=== PATIENT | male | born 1955 | race Caucasian/White ===

== ENCOUNTER 2024-05-12 10:34 | Outpatient (AMB) | payer MEDICARE, SELFPAY ==
--- NOTE | 2024-05-12 10:38 | A.OFFVIS_ITS ---
Vital Signs 05/12/24 10:42 Height 6 ft 1 in Weight 225 lb BMI 29.7 BP 128/60 Blood Pressure Location Lt brachial Position Sitting Pulse 70 Pulse Source Pulse Oximeter Pulse Oximetry (%) 97 Oxygen Delivery Method Room Air Intake Visit Reasons: Sleep apnea Kiln Pusher Required: No Allergies No Known Allergies Allergy (Verified 05/12/24 10:38) HPI Comments Details: The patient is here for pulmonary evaluation. The patient is a 69-year-old gentleman with known history of aortic stenosis CAD status post CABG and also significant sleep apnea. Back around 20 years ago the patient did have significant snoring in his at that time did recommend that he get that evaluated with his significant snoring that was affecting her quality of life. He at that time had significant daytime drowsiness with an elevated [place] score of 11/24. The patient did have a sleep study back in 2006 which d emonstrated sleep apnea severe and subsequently had a titration study demonstrating the CPAP 7 cm worse effective for him. Therefore, he did start CPAP at that time. He has machine for long time. CPAP therapy has been affecting beneficial. Now his machine is no longer working effectively. The pressures are not working as robust as they were before. He does not feel as rested. In addition to that now the machine saying that the the angina is about to malfunction. He needs to get a CPAP through his current [employer] company, [employer]. Will go ahead and request a replacement machine for him, AirSense 11. Once he is situated with the machine he will come back and will further adjust the pressures accordingly. From a respiratory status the patient is doing well. He is currently being evaluated for the severe aortic stenosis. His contemplating surgery at this time. [facility] Medical History (Updated 05/12/24 @ 20:33 by Clint Guo MD) CAD (coronary artery disease) Aortic stenosis KATJA (obstructive sleep apnea) Social History (Updated 05/12/24 @ 10:42 by BASIM Sung) Patient Tobacco Use Status: Never used Tobacco Review of Systems Const Denies fatigue and Denies snoring Eyes Reports no additional complaints ENT Reports nasal congestion Card Reports as per HPI and Denies dyspnea Resp Denies dyspnea, Denies snoring and Denies wheezing GI Reports no additional complaints Musc Reports no additional complaints Skin/Breast Reports system reviewed and no additional complaints, except as documented Neuro Reports no additional complaints Endo Denies fatigue Alessio/Lymph Denies lymphadenopathy Aller/Immun Denies wheezing Physical Exam Vital Signs: Last Vital Signs Pulse 70 05/12/24 10:42 BP 128/60 05/12/24 10:42 Pulse Ox 97 05/12/24 10:42 Oxygen Delivery Method Room Air 05/12/24 10:42 BMI result Body Mass Index 29.7 Const General: comfortable HEENT Head: Yes atraumatic Neck Neck: Yes supple Chest Chest palpation & inspection: normal inspection of the chest Resp Effort & Inspection: normal respiratory effort Cardio Heart sounds: S1 normal heart sound present and S2 normal heart sound present GI Palpation (GI): Soft to palpation Skin General skin exam: no rashes or lesions noted Extrem General: Yes no clubbing, cyanosis or edema Assessment & Plan Assessment & Plan (1) KATJA (obstructive sleep apnea): Code(s): G47.33 - Obstructive sleep apnea (adult) (pediatric) Category: Medical (2) Aortic stenosis: Code(s): I35.0 - Nonrheumatic aortic (valve) stenosis Category: Medical Qualifiers: Cardiac valve disease etiology: etiology unspecified Qualified Code(s): I35.0 - Nonrheumatic aortic (valve) stenosis (3) CAD (coronary artery disease): Code(s): I25.10 - Atherosclerotic heart disease of [place] coronary artery without angina pectoris Category: Medical Qualifiers: Coronary Disease-Associated Artery/Lesion type: bypass graft, autologous artery Associated angina: unspecified whether angina present Qualified Code(s): I25.810 - Atherosclerosis of coronary artery bypass graft(s) without angina pectoris Plan Needs a replacement APAP, his current APAP is older than 5 years old and no longer working effectively. We will request a replacement APAP from his [employer]unice continue evaluation for Aortic valve replacment. TVAR likely a better approach in view of his previous open hear surgery. F/U 3-4 months wit his new APAP Coding Level of Care Code New Pt Level 4 (51250) Diagnoses KATJA (obstructive sleep apnea) G47.33 Aortic valve stenosis, etiology of cardiac valve disease unspecified I35.0 Cardiac valve disease etiology: etiology unspecified Coronary artery disease involving autologous artery coronary bypass graft, unspecified whether angina present I25.810 Coronary Disease-Associated Artery/Lesion type: bypass graft, autologous artery Associated angina: unspecified whether angina present Time Spent (min) 30
[2024-05-12 10:42] VITALS: BP 128/60; PULSE 70; O2SAT 97; BMI 29.7
== END 2024-05-12 11:05 | disposition home or self-care (01) ==
PROVIDERS: PCP Internal Medicine; Visit Provider Hospitalist
DX: G47.33 Obstructive sleep apnea (adult) (pediatric) (principal); I35.0 Nonrheumatic aortic (valve) stenosis; I25.810 Atherosclerosis of coronary artery bypass graft(s) without angina pectoris
CPT/HCPCS: 99204

== ENCOUNTER → 2024-05-12 10:34 | Outpatient (BNVA) | payer MEDICARE, SELFPAY | PROVIDERS: PCP Internal Medicine; Visit Provider Hospitalist | DX: G47.33 Obstructive sleep apnea (adult) (pediatric) (principal); I35.0 Nonrheumatic aortic (valve) stenosis; I25.810 Atherosclerosis of coronary artery bypass graft(s) without angina pectoris; Z95.1 Presence of aortocoronary bypass graft | CPT/HCPCS: 99202 ==

== ENCOUNTER 2024-08-25 10:50 | Outpatient (AMB) | payer MEDICARE, SELFPAY ==
[2024-08-25 10:52] VITALS: BP 122/78; PULSE 83; O2SAT 98; BMI 30.2
--- NOTE | 2024-08-25 10:52 | MHC.OFFVIS ---
Vital Signs 08/25/24 10:52 Height 6 ft 1 in Weight 229 lb 4.492 oz BMI 30.2 BP 122/78 Blood Pressure Location Lt brachial Position Sitting Pulse 83 Pulse Source Doppler Pulse Oximetry (%) 98 Oxygen Delivery Method Room Air Intake Visit Reasons: Sleep apnea Allergies No Known Allergies Allergy (Verified 08/25/24 10:58) HPI Comments Details: The patient is a 69-year-old gentleman with known history of aortic stenosis CAD status post CABG and also significant sleep apnea. Back around 20 years ago the patient did have significant snoring in his at that time did recommend that he get that evaluated with his significant snoring that was affecting her quality of life. He at that time had significant daytime drowsiness with an elevated [place] score of 11/24. The patient did have a sleep study back in 2006 which demonstrated sleep apnea severe and subsequently had a titration study demonstrating the CPAP 7 cm worse effective for him. Therefore, he did start CPAP at that time. He has machine for long time. CPAP therapy has been affecting beneficial. Now his machine is no longer working effectively. The pressures are not working as robust as they were before. He does not feel as rested. In addition to that now the machine saying that the the angina is about to malfunction. He needs to get a CPAP through his current DME company, [employer]. Will go ahead and request a replacement machine for him, AirSense 11. Once he is situated with the machine he will come back and will further adjust the pressures accordingly. From a respiratory status the patient is doing well. He is currently being evaluated for the severe aortic stenosis. His contemplating surgery at this time. 08/25/2024 the patient is here for a pulmonary follow-up visit. Overall he is doing well. 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 Now his heart is working fine and he is not using the pacemaker and he is using it standby for now. He was wondering about removing it but at this point the recommendation is to keep it in place. In the meantime he has been using the CPAP. CPAP therapy has been affecting beneficial. His AHI still slightly elevated at 8 over 24. But he is using the machine for more than 4 hours a night. He wishes he felt more rested in the morning. He may have a component of persistent daytime drowsiness. At this point is not worth putting him on any medications. His AHI is on 12.5. I will slightly adjust the machine to increase the minimum pressure from 6-7 to be closer to his therapeutic range. But it seems to be working just fine with current mask. Therefore will continue that. He does complaint of some dyspnea on exertion. He also complains of some chest tightness. He does have some wheezing on exam. Will start him on some inhalers and I do believe that if pulmonary function study will be helpful in the near future. In part the use of the metoprolol may be affecting his bronchospasms. [facility] Medical History (Updated 08/25/24 @ 11:18 by Clint Guo MD) Wheezing CAD (coronary artery disease) Aortic stenosis KATJA (obstructive sleep apnea) Social History (Updated 05/12/24 @ 10:42 by BASIM Sung) Patient Tobacco Use Status: Never used Tobacco Review of Systems Const Denies fatigue and Denies snoring Eyes Reports no additional complaints ENT Reports nasal congestion Card Reports as per HPI and Reports dyspnea on exertion Resp Reports dyspnea on exertion, Denies snoring and Reports wheezing GI Reports no additional complaints Musc Reports no additional complaints Skin/Breast Reports system reviewed and no additional complaints, except as documented Neuro Reports no additional complaints Endo Denies fatigue Alessio/Lymph Denies lymphadenopathy Aller/Immun Reports wheezing Physical Exam Vital Signs: Last Vital Signs Pulse 83 08/25/24 10:52 BP 122/78 08/25/24 10:52 Pulse Ox 98 08/25/24 10:52 Oxygen Delivery Method Room Air 08/25/24 10:52 BMI result Body Mass Index 30.2 Const General: comfortable HEENT Head: Yes atraumatic Neck Neck: Yes supple Chest Chest palpation & inspection: normal inspection of the chest Resp Effort & Inspection: normal respiratory effort Auscultation: wheezes and diminished lung sounds Cardio Heart sounds: S1 normal heart sound present and S2 normal heart sound present GI Palpation (GI): Soft to palpation Skin General skin exam: no rashes or lesions noted Extrem General: Yes no clubbing, cyanosis or edema Assessment & Plan Assessment & Plan (1) KATJA (obstructive sleep apnea): Code(s): G47.33 - Obstructive sleep apnea (adult) (pediatric) Category: Medical (2) Aortic stenosis: Code(s): I35.0 - Nonrheumatic aortic (valve) stenosis Category: Medical Qualifiers: Cardiac valve disease etiology: etiology unspecified Qualified Code(s): I35.0 - Nonrheumatic aortic (valve) stenosis (3) CAD (coronary artery disease): Code(s): I25.10 - Atherosclerotic heart disease of [place] coronary artery without angina pectoris Category: Medical Qualifiers: Associated angina: unspecified whether angina present Coronary Disease-Associated Artery/Lesion type: bypass graft, autologous artery Qualified Code(s): I25.810 - Atherosclerosis of coronary artery bypass graft(s) without angina pectoris (4) Wheezing: Code(s): R06.2 - Wheezing Category: Medical Plan continue APAP, p10, adjusted 7-16 PFTs start Symbicort F/U 4 months Orders: Orders PFT pulmonary function test 3 Months R06.2 - Wheezing Medications: New budesonide-formoterol 160-4.5 mcg/actuation (Symbicort) 2 puffs inhalation BID 10.2 grams 11RF 30 days J44.89 - Other specified chronic obstructive pulmonary disease Coding Level of Care Code Est Pt Level 4 (17905) Diagnoses KATJA (obstructive sleep apnea) G47.33 Aortic valve stenosis, etiology of cardiac valve disease unspecified I35.0 Cardiac valve disease etiology: etiology unspecified Coronary artery disease involving autologous artery coronary bypass graft, unspecified whether angina present I25.810 Associated angina: unspecified whether angina present Coronary Disease-Associated Artery/Lesion type: bypass graft, autologous artery Wheezing R06.2 Time Spent (min) 17
== END 2024-08-25 11:23 | disposition home or self-care (01) ==
PROVIDERS: PCP Internal Medicine; Visit Provider Hospitalist
DX: G47.33 Obstructive sleep apnea (adult) (pediatric) (principal); I35.0 Nonrheumatic aortic (valve) stenosis; I25.810 Atherosclerosis of coronary artery bypass graft(s) without angina pectoris; R06.2 Wheezing
CPT/HCPCS: 99214

== ENCOUNTER → 2024-08-25 10:50 | Outpatient (BNVA) | payer MEDICARE, SELFPAY | PROVIDERS: PCP Internal Medicine; Visit Provider Hospitalist | DX: G47.33 Obstructive sleep apnea (adult) (pediatric) (principal); I35.0 Nonrheumatic aortic (valve) stenosis; I25.810 Atherosclerosis of coronary artery bypass graft(s) without angina pectoris; R06.2 Wheezing; J44.89 Other specified chronic obstructive pulmonary disease; Z95.0 Presence of cardiac pacemaker; Z99.89 Dependence on other enabling machines and devices; Z79.899 Other long term (current) drug therapy | CPT/HCPCS: 99212 ==

== ENCOUNTER 2024-11-18 10:53 | Outpatient (REF) | payer MEDICARE, SELFPAY ==
[2024-11-18 10:10] VITALS: PULSE 81; O2SAT 96
--- NOTE | 2024-11-18 10:56 | PFT_ITS ---
Flows: FEV1: 96 % of predicted at 3.30 L FVC: 93 % of predicted at 4.25 L FEV1/FVC: 78 % Bronchodilator response: Present in small to medium airways only Volumes: Total lung capacity: 84 % of predicted at 6.39 L Residual volume: 76 % of predicted at 2.05 L Slow vital capacity: 88 % of predicted at 4.34 L Expiratory reserve volume: 82 % of predicted at 1.13 L Diffusion capacity: Normal Impression: No obstructive or restrictive ventilatory defect. Bronchodilator response is present in small to medium airways only. MTDD
--- OUTSIDE RECORDS SUMMARY | 2024-11-18 13:10 | XMS_ITS | Encounter Summary ---
Author Organization [facility] Address [address] [place] [address] Care Team Providers Care Revenue Tax Specialist Name Role Phone Adi Chen MD Primary Care Provider Unavail able [facility], Pcp Primary Care Provider Unavailabl e Encounter Details Date Type Department Care Team Description 04/26/2021 Research Engineer Report Medical Records [address] [place] [address] Social History Tobacco Use Types Packs/Day Years Used Date Smoking Tobacco: Never Smokeless Tobacco: Never Alcohol Use Standard Drinks/Week Comments Yes 10 (1 standard drink = 0.6 oz pure alcohol) wine few days out of the week 2-3 glasses Sex Assigned at Date Recorded Not on file COVID-19 Exposure Response Date Recorded In the last month, have you been in contact with someone who was confirmed or suspected to have Coronavirus / COVID-19? No / Unsure 04/05/2021 8:52 AM EDT documented as of this encounter Plan of Treatment Not on file documented as of this encounter Visit Diagnoses Not on filedocumented in this encounter Care Teams Revenue Tax Specialist Relationship Specialty Start Date End Date Adi Chen MD PCP - General Internal Medicine 07/31/19 03/08/22 [facility], Pcp PCP - General Internal Medicine 03/09/22 documented as of this encounter
--- OUTSIDE RECORDS SUMMARY | 2024-11-18 13:10 | XMS_ITS | Encounter Summary ---
Author Organization [facility] Address [address] [place] [address] Care Team Providers Care Radio Repairman Name Role Phone Adi Chen MD Primary Care Provider [facility], Pcp Primary Care Provider Unavailabl e Reason for Referral * Non PROMISE (Urgent) - Closed Specialty Diagnoses / Procedures Referred By Contac t Referred To Contact ORTHOPEDICS / Podiatry Procedures REFERRAL TO ORTHOPEDICS (IN NETWORK) Max Fitch PA-C [address] [place] [id number] Vtio Bob DPM [address] [address] Referral ID Status Reason Start Date Expiration Date Visits Re quested Visits Authorized [id number] Closed 03/23/2021 03/23/2022 1 1 Encounter Details Date Type Department Care Team Description 03/23/2021 Orders Only Orthopedics-[address] [id number] Max Fitch PA-C [address] [place] [address] [id number] Social History Tobacco Use Types Packs/Day Years [...] have Coronavirus / COVID-19? No / Unsure 03/23/2021 7:51 AM EDT documented as of this encounter Plan of Treatment Not on file documented as of this encounter Visit Diagnoses Not on filedocumented in this encounter Care Teams Radio Repairman Relationship Specialty Start Date End Date Adi Chen MD PCP - General Internal Medicine 07/31/19 03/08/22 [facility], Pcp PCP - General Internal Medicine 03/09/22 documented as of this encounter
--- OUTSIDE RECORDS SUMMARY | 2024-11-18 13:10 | XMS_ITS | Encounter Summary ---
Author Organization [facility] Address [address] [place] [address] Care Team Providers Care Natural Fabricator Name Role Phone Eliane Morales MD Primary Care Provider Adi Dawson MD Primary Care Provider [facility] Pcp Primary Care Provider Unavailabl e Encounter Details Date Type Department Care Team Description 02/20/2019 Orders Only LAB /[address] [phone] Eliane Morales MD Diabetes mellitus without complication (HCC) (Primary Dx) Social History Tobacco Use Types Packs/Day Years Used Date Smoking Tobacco: Never Smokeless Tobacco: Never Alcohol Use Standard Drinks/Week Comments Yes 10 (1 standard drink = 0.6 oz pure alcohol) wine few days out of the week 2-3 glasses Sex Assigned at Date Recorded Not on file documented as of this encounter Plan of Treatment Scheduled Orders Name Type Priority Associated Diagnoses Orde r Schedule VENIPUNCTURE Procedures Routine Diabetes mellitus without complication (HCC) Ordered: 02/20/2019 documented as of this encounter Results * BASIC METABOLIC PANEL (02/20/2019 2:38 PM EDT) GLUCOSE 98 70 - 100 mg/dL 02/20/2019 4:37 PM EDT [facility] Comment:Reference range appl icable to fasting specimens only Blood Urea Nitrogen 18 5 - 25 mg/dL 02/20/2019 4:37 PM EDT [facility] CREAT 0.87 0.7 - 1.3 mg/dL 02/20/2019 4:37 PM EDT [facility] GLOMERULAR FILTRATION RATE > 60 02/20/2019 4:37 PM EDT [facility] Comment: If patient is -[place], multiply result by 1.21 Chronic Kidney Disease: < 60 ml/min/1.73 square meters Kidney Failure: < 15 ml/min/1.73 square meters NA 138 133 - 145 mmol/L 02/20/2019 4:37 PM EDT [facility] K 4.5 3.5 - 5.5 mmol/L 02/20/2019 4:37 PM EDT [facility] CL 103 96 - 110 mmol/L 02/20/2019 4:37 PM EDT [facility] CARBON DIOXIDE (CO2) 29 21 - 32 mmol/L 02/20/2019 4:37 PM EDT [facility] ANION GAP 6 3 - 11 02/20/2019 4:37 PM EDT [facility] CALCIUM 9.8 8.5 - 10.5 mg/dL 02/20/2019 4:37 PM EDT [facility] 02/20/2019 2:38 PM EDT 02/20/2019 2:38 PM EDT Eliane Morales MD LAB [facility] * (ABNORMAL) HEMOGLOBIN A1C (02/20/2019 2:38 PM EDT) GLYCATED HEMOGLOBIN A1C 7.2(H) <6.5 % 02/20/2019 8:47 PM EDT [facility] ESTIMATED AVERAGE GLUCOSE 160 mg/dL 02/20/2019 8:47 PM EDT [facility] 02/20/2019 2:38 PM EDT 02/20/2019 2:38 PM EDT Eliane Morales MD LAB [facility] documented in this encounter Visit Diagnoses Diagnosis Diabetes mellitus without complication (HCC)- Primary Type II or unspecified type diabetes mellitus without mention of complication, not stated as uncontrolled documented in this encounter Care Teams Natural Fabricator Relationship Specialty Start Date End Date Eliane Morales MD PCP - General Internal Medicine 08/07/17 07/30/19 Adi Chen MD PCP - General Internal Medicine 07/31/19 03/08/22 [facility], Pcp PCP - General Internal Medicine 03/09/22 documented as of this encounter
--- OUTSIDE RECORDS SUMMARY | 2024-11-18 13:10 | XMS_ITS | Encounter Summary ---
Author Organization [facility] Address [address] [place] [address] Care Team Providers Care Sales Agent [employer] Name Role Phone Adi Chen MD Primary Care Provider Unavail able [facility], Pcp Primary Care Provider Unavailabl e Encounter Details Date Type Department Care Team Description 04/08/2021 Agricultural Inspector Report Medical Records [address] [place] [address] Pradeep Hernandez Social History Tobacco Use Types Packs/Day Years [...] on filedocumented in this encounter Care Teams Sales Agent [employer] Insurance Relationship Specialty Start Date End Date Adi Chen MD PCP - General Internal Medicine 07/31/19 03/08/22 [facility], Pcp PCP - General Internal Medicine 03/09/22 documented as of this encounter
--- OUTSIDE RECORDS SUMMARY | 2024-11-18 13:10 | XMS_ITS | Encounter Summary ---
Author Organization [facility] Address [address] [place] [address] Care Team Providers Care Hardboard Panel Printer Name Role Phone Eliane Morales MD Primary Care Provider dAi Dawson MD Primary Care Provider [facility], Pcp Primary Care Provider Unavailabl e Encounter Details Date Type Department Care Team Description 02/13/2018 Telephone Pulmonology - [address] [place] [address] Arturo Butler Social History Tobacco Use Types Packs/Day Years Used Date Smoking Tobacco: Never Smokeless Tobacco: Never Alcohol Use Standard Drinks/Week Comments Yes 0 (1 standard drink = 0.6 oz pure alcohol) wine few days out of the week 2-3 glasses Sex Assigned at Date Recorded Not on file documented as of this encounter Plan of Treatment Not on file documented as of this encounter Visit Diagnoses Not on filedocumented in this encounter Care Teams Hardboard Panel Printer Relationship Specialty Start Date End Date Eliane Morales MD PCP - General Internal Medicine 08/07/17 07/30/19 Adi Chen MD PCP - General Internal Medicine 07/31/19 03/08/22 [facility], Pcp PCP - General Internal Medicine 03/09/22 documented as of this encounter
--- OUTSIDE RECORDS SUMMARY | 2024-11-18 13:10 | XMS_ITS | Encounter Summary ---
Author Organization [facility] Address [address] [place] [address] Care Team Providers Care Horse Farm Manager Name Role Phone Adi Chen MD Primary Care Provider Unavail able [facility], Pcp Primary Care Provider Unavailabl e Encounter Details Date Type Department Care Team Description 07/22/2021 Refill Medicine/Pediatrics - [address] [phone] Meghna Sanchez PA-C [address] [place] [address] Social History Tobacco Use Types Packs/Day Years [...] have Coronavirus / COVID-19? No / Unsure 07/19/2021 9:58 AM EDT documented as of this encounter Plan of Treatment Not on file documented as of this encounter Visit Diagnoses Not on filedocumented in this encounter Care Teams Horse Farm Manager Relationship Specialty Start Date End Date Adi Chen MD PCP - General Internal Medicine 07/31/19 03/08/22 [facility], Pcp PCP - General Internal Medicine 03/09/22 documented as of this encounter
--- OUTSIDE RECORDS SUMMARY | 2024-11-18 13:10 | XMS_ITS | Encounter Summary ---
Author Organization [facility] Address [address] [place] [address] Care Team Providers Care Political Director Name Role Phone Adi Chen MD Primary Care Provider Unavail able [facility], Pcp Primary Care Provider Unavailabl e Encounter Details Date Type Department Care Team Description 04/18/2021 Business Doc Medical Records [address] [place] [address] Abstract, Provider Social History Tobacco Use Types Packs/Day Years [...] on filedocumented in this encounter Care Teams Political Director Relationship Specialty Start Date End Date Adi Chen MD PCP - General Internal Medicine 07/31/19 03/08/22 [facility], Pcp PCP - General Internal Medicine 03/09/22 documented as of this encounter
--- OUTSIDE RECORDS SUMMARY | 2024-11-18 13:10 | XMS_ITS | Encounter Summary ---
Author Organization [facility] Address [address] [place] [address] Care Team Providers Care Right Of Way Maintenance Supervisor Name Role Phone Adi Chen MD Primary Care Provider Unavail able [facility], Pcp Primary Care Provider Unavailabl e Encounter Details Date Type Department Care Team Description 11/09/2021 Turnstile Attendant Report Medical Records [address] [place] [address], [address] [place] [address] Social History Tobacco Use Types Packs/Day Years [...] on filedocumented in this encounter Care Teams Right Of Way Maintenance Supervisor Relationship Specialty Start Date End Date Adi Chen MD PCP - General Internal Medicine 07/31/19 03/08/22 [facility], Pcp PCP - General Internal Medicine 03/09/22 documented as of this encounter
--- OUTSIDE RECORDS SUMMARY | 2024-11-18 13:10 | XMS_ITS | Encounter Summary ---
Author Organization [facility] Address [address] [place] [address] Care Team Providers Care Therapist Physical Name Role Phone Eliane Morales MD Primary Care Provider Adi Dawson MD Primary Care Provider [facility] Pcp Primary Care Provider Unavailabl e Encounter Details Date Type Department Care Team Description 09/10/2018 Orders Only LAB /[address] [phone] Eliane Morales MD Diabetes mellitus without complication [...] Priority Associated Diagnoses Orde r Schedule VENIPUNCTURE Lab Routine Diabetes mellitus without complication (HCC) Expected: 09/10/2018, Expires: 09/10/2019 documented as of this encounter Results * (ABNORMAL) HEMOGLOBIN A1C (09/10/2018 11:56 AM EST) GLYCATED HEMOGLOBIN A1C 7.4(H) <6.5 % 09/10/2018 2:07 PM EST [facility] ESTIMATED AVERAGE GLUCOSE 166 mg/dL 09/10/2018 2:07 PM EST [facility] 09/10/2018 11:5 6 AM EST 09/10/2018 11:57 AM EST Eliane Morales MD LAB [facility] documented in this encounter Visit Diagnoses Diagnosis Diabetes mellitus without complication (HCC)- Primary Type II or unspecified type diabetes mellitus without mention of complication, not stated as uncontrolled documented in this encounter Care Teams Therapist Physical Relationship Specialty Start Date End Date Eliane Morales MD PCP - General Internal Medicine 08/07/17 07/30/19 Adi Chen MD PCP - General Internal Medicine 07/31/19 03/08/22 [facility], Pcp PCP - General Internal Medicine 03/09/22 documented as of this encounter
--- OUTSIDE RECORDS SUMMARY | 2024-11-18 13:10 | XMS_ITS | Encounter Summary ---
Author Organization [facility] Address [address] [place] [address] Care Team Providers Care Particleboard Factory Worker Name Role Phone Eliane Morales MD Primary Care Provider Adi Dawson MD Primary Care Provider [facility], Pcp Primary Care Provider [facility] Encounter Details Date Type Department Care Team Description 08/13/2017 Transfer Records Medical Records [address] [place] [address] Abstract, Provider Social History Tobacco Use Types [...] on filedocumented in this encounter Care Teams Particleboard Factory Worker Relationship Specialty Start Date End Date Eliane Morales MD PCP - General Internal Medicine 08/07/17 07/30/19 Adi Chen MD PCP - General Internal Medicine 07/31/19 03/08/22 [facility], Pcp PCP - General Internal Medicine 03/09/22 documented as of this encounter
--- OUTSIDE RECORDS SUMMARY | 2024-11-18 13:10 | XMS_ITS | Encounter Summary ---
Author Organization [facility] Address [address] [place] [address] Care Team Providers Care Pari Mutuel Ticket Cashier Name Role Phone Adi Chen MD Primary Care Provider Unavail able [facility], Pcp Primary Care Provider Unavailabl e Encounter Details Date Type Department Care Team Description 09/21/2021 Brush Maker Report Medical Records [address] [place] [address] Ileana Smalls PA-C Social History Tobacco Use Types Packs/Day Years [...] on filedocumented in this encounter Care Teams Pari Mutuel Ticket Cashier Relationship Specialty Start Date End Date Adi Chen MD PCP - General Internal Medicine 07/31/19 03/08/22 [place], Pcp PCP - General Internal Medicine 03/09/22 documented as of this encounter
--- OUTSIDE RECORDS SUMMARY | 2024-11-18 13:10 | XMS_ITS | Encounter Summary ---
Author Organization [facility] Address [address] [place] [address] Care Team Providers Care Shipyard Laborer Name Role Phone Adi Chen MD Primary Care Provider Unavail able [facility], Pcp Primary Care Provider Unavailabl e Encounter Details Date Type Department Care Team Description 05/31/2021 Business Doc Medical Records [address] [place] [address] Abstract, Provider Social History Tobacco Use Types [...] have Coronavirus / COVID-19? No / Unsure 05/25/2021 1:35 PM EDT documented as of this encounter Plan of Treatment Not on file documented as of this encounter Visit Diagnoses Not on filedocumented in this encounter Care Teams Shipyard Laborer Relationship Specialty Start Date End Date Adi Chen MD PCP - General Internal Medicine 07/31/19 03/08/22 [facility], Pcp PCP - General Internal Medicine 03/09/22 documented as of this encounter
--- OUTSIDE RECORDS SUMMARY | 2024-11-18 13:10 | XMS_ITS | Clinical Summary ---
Author Organization [facility] Address [address] [place] [address] Care Team Providers Care Gas Distribution Plant Operator Name Role Phone [facility], Pcp Primary Care Provider Unavailabl e Allergies No known active allergies Medications Medication Sig Dispensed Refills Start Date End Date Status aspirin 81 MG tablet Take 81 mg by mouth daily. 0 Active CPAP Historical (HISTORICAL CPAP) Inhale into the lungs. 0 Active Vitamin D, Cholecalciferol, 1000 UNITS Cap Take 2 Caps by mouth daily. 60 Cap 0 09/12/2018 Active metoprolol (TOPROL-XL) 50 MG 24 hr tablet Take 1 Tab by mouth 2 times daily. 0 02/06/2019 Active ALBUTEROL SULFATE 108 (90 Base) MCG/ACT Aero Soln Inhale 2 Puffs into the lungs every 4 hours as needed for Cough or Wheezing. 1 Inhaler 1 08/16/2020 Active triamcinolone (KENALOG) 0.1 % cream 15 g 0 11/12/2021 Active atorvastatin (LIPITOR) 80 MG tablet Take 1 Tablet by mouth daily. 90 Tablet 1 01/10/2022 Active amlodipine (NORVASC) 2.5 MG tablet Take 2.5 mg by mouth daily. 0 Active metformin (GLUCOPHAGE-XR) 500 MG 24 hr tablet TAKE 2 TABLETS BY MOUTH TWICE A DAY 360 Tablet 1 01/17/2022 Active losartan (COZAAR) 50 MG tablet Take 1 Tablet by mouth daily. 90 Tablet 1 01/17/2022 Active Dulaglutide 0.75 MG/0.5ML Solution Pen-injector Inject 1 Device into the skin once a week. 6 mL 1 01/17/2022 Active Active Problems Problem Noted Date Dermatitis, unspecified 11/12/2021 Overview: [facility] Tinnitus 04/11/2021 Overview: Dr Hernandez; f/u prn Grieving 08/03/2020 Obesity 11/27/2019 Tubular adenoma of colon 09/05/2018 Coronary atherosclerosis 06/20/2018 Overview: H/o CABG. Dr Krishnamurthy Vitamin D deficiency 03/14/2018 Type 2 diabetes mellitus without complic ations 01/29/2018 Obstructive sleep apnea 01/29/2018 Overview: CPAP Hyperlipidemia 01/29/2018 Allergic rhinitis 01/29/2018 Asthma 01/29/2018 Hypertension 01/29/2018 Resolved Problems Problem Noted Date Resolved Date Old KS (myocardial infarction) 07/29/2021 1 10/12/2020 Overview: NSTEMI, no date provided. Heart murmur 02/11/2015 11/27/2019 Immunizations Name Administration Dates Next Due COVID-19 (Pfizer) 07/21/2021,12/13/2020,11/23/19 21 Flu Vaccine 3 Yrs> Im 06/07/2017 Influenza (>6 Months) Split Preservative Free 07/07/2016,07/22/2015,08/06/2014,06/21,07/13/2011 Influenza vaccine high dose age 65 and over 05/28/2021 Pneumoccoccal(Adult) Polysac charide PPSV23 05/25/2021,07/02/2016,03/22/2016 Shingrix (Recombinant zoster vaccine) 06/09/2020 ,09/11/2019 TD (STATE SUPPLIED FOR ADULT S AND CHILDREN) 05/25/2021 Tdap 02/14/2010 Family History Medical History Relation Name Comments Diabetes Brother 1 Diabetes Brother 2 CAD Father Diabetes Father Hypertension Father CAD Maternal Grandfather Emphysema Maternal Grandfather CAD Maternal Grandmother Hypertension Mother Parkinson's Disease Mother Cancer, Other Paternal Grandfather uncert ain type Diabetes Sister 2 Relation Name Status Comments Brother 1 Alive Brother 2 Alive Father Maternal Grandfather Maternal Grandmother Mother Paternal Grandfather Paternal Grandmother Sister 1 Alive Sister 2 Alive Social History Tobacco Use Types Packs/Day Years Used Date Smoking Tobacco: Never Smokeless Tobacco: Never Alcohol Use Standard Drinks/Week Comments Yes 10 (1 standard drink = 0.6 oz pure alcohol) wine few days out of the week 2-3 glasses Sex Assigned at Date Recorded Not on file Last Filed Vital Signs Vital Sign Reading Time Taken Comments Blood Pressure 130/60 01/17/2022 4:07 PM EDT Pulse 77 01/17/2022 3:38 PM EDT Temperature 36.8 ??C (98.2 ??F) 04/21/2020 9:01 AM ED T Respiratory Rate 16 01/17/2022 3:38 PM EDT Oxygen Saturation 98% 02/05/2018 3:40 PM EDT r/a Inhaled Oxygen Concentration - - Weight 105.1 kg (231 lb 9.6 oz) 01/17/2022 3:38 PM EDT Height 185.4 cm (6' 1 ) 08/12/2021 1:10 PM EST Body Mass Index 30.56 08/12/2021 1:10 PM EST Plan of Treatment Health Maintenance Due Date Last Done Comments DEPRESSION SCREEN 1967 FALL RISK ASSESSMENT 2020 DIABETES: ANNUAL FOOT EXAM 12/14/2021 12/14/2020, DIABETES: BLOOD SUGAR CONTROL TEST (HGBA1C) 04/13/2022 01/12/2022, 08/10/2021, 07/13/2021 (External Completion), Additional history exists DIABETES: ANNUAL EYE EXAM 05/25/20222020 (External Completion of test per patient (Patient reports normal results)), 05/25/2020 (External Completion of test per patient (Patient reports normal results)), 05/25/2019 (External Completion of test per patient (Patient reports normal results)), Additional history exists PNEUMOCOCCAL VACCINE (2 - PCV) 05/25/2022 05/25/2021, 07/02/2016, 03/22/2016 DIABETES/HEART DISEASE: ANNUAL CHOLESTEROL (LDL) 08/10/2022 08/10/2021, 12/08/2020, 04/19/2020, Additional history exists DIABETES: ANNUAL URINE PROTEIN TEST (MICROALBUMIN) 08/10/2022 08/10/2021, 12/08/2020, 11/21/2019 COLON CANCER SCREENING 06/10/2023 06/10/2018 Covid-19 Vaccine ( season) 2024 07/21/2021, 12/13/2020, 11/22/2020 INFLUENZA (#1) 2024 05/28/2021, 1109/2019 (External Completion of Vaccination per patient), 07/25/2019 (External Completion of Vaccination per patient), Additional history exists BMI CHECK/ADVISE 09/24/2024 08/12/2021, , 05/25/2021, Additional history exists DTAP/TDAP/TD (3 - Td or Tdap) 05/25/2031 05/25/2021, 02/14/2010 HEPATITIS C SCREENING Completed 04/19/2020 SHINGLES VACCINE Addressed 06/24/2020 (Ext ernal Completion of test per patient (Patient reports normal results)), 06/09/2020, 09/11/2019 Overridden with the intention of not completing the topic Care Teams Gas Distribution Plant Operator Relationship Specialty Start Date End Date [facility], Pcp PCP - General Internal Medicine 03/09/22
--- OUTSIDE RECORDS SUMMARY | 2024-11-18 13:10 | XMS_ITS | Encounter Summary ---
Author Organization [facility] Address [address] [place] [address] Care Team Providers Care Data Quality Consultant Name Role Phone Adi Chen MD Primary Care Provider [facility] Pcp Primary Care Provider Unavailabl e Reason for Visit * Reason Onset Date Comments APPOINTMENT 12/14/2020 Encounter Details Date Type Department Care Team Description 12/14/2020 Telephone Adult Medicine [address] [address] Adi Chen MD APPOINTMENT Social History Tobacco Use Types Packs/Day Years [...] have Coronavirus / COVID-19? No / Unsure 12/14/2020 1:55 PM EDT documented as of this encounter Miscellaneous Notes * Telephone Encounter - Kassy Vora M.A. - 12/14/2020 5:04 PM EDT Your note is not complete yet but pt wants to make sure a referral is placed * Telephone Encounter - Nahomi Galindo - 12/14/2020 4:29 PM EDT Pt had an appt today wants to confirm that he was referred to ENT documented in this encounter Plan of Treatment Not on file documented as of this encounter Visit Diagnoses Not on filedocumented in this encounter Care Teams Data Quality Consultant Relationship Specialty Start Date End Date Adi Chen MD PCP - General Internal Medicine 07/31/19 03/08/22 [facility], Pcp PCP - General Internal Medicine 03/09/22 documented as of this encounter
--- OUTSIDE RECORDS SUMMARY | 2024-11-18 13:10 | XMS_ITS | Clinical Summary ---
Author Organization [facility] Address [phone] [facility] [place] [address] Care Team Providers Care Jewelry Sorter Name Role Phone Eliane Morales MD Primary Care Provider [phone] Allergies No known active allergies Medications Medication Sig Dispensed Refills Start Date End Date Status aspirin 81 MG EC tablet Take by mouth daily. 07/21/2017 Active metoprolol tartrate (LOPRESSOR) 50 MG tablet Active metFORMIN (GLUCOPHAGE) 500 MG tablet Take 500 mg by mouth daily with breakfast. Active simvastatin (ZOCOR) 20 MG tablet Take 20 mg by mouth nightly. Active Social History Tobacco Use Types Packs/Day Years Used Date Smoking Tobacco: Never Smokeless Tobacco: Never Alcohol Use Standard Drinks/Week Comments Yes 0 (1 standard drink = 0.6 oz pur e alcohol) 1 daily Education Answer Date Recorded Are you interested in more education? Not on noris e 04/15/2024 Are you concerned about learning? Not on file 04/15/2024 No 04/15/2024 No 04/15/2024 Digital Access Answer Date Recorded No 04/15/2024 No 04/15/2024 Reliable internet access at home? Not on file 04/15/2024 Device with a working camera? Not on file Sex and Gender Information Value Date Recorded Sex Assigned at Male 10/01/2017 9:38 AM EST Gender Identity Male 10/01/2017 9:38 AM EST Sexual Orientation Straight 10/01/2017 9: 38 AM EST Last Filed Vital Signs Vital Sign Reading Time Taken Comments Blood Pressure 161/88 07/21/2017 9:02 PM EDT Pulse 70 07/21/2017 9:02 PM EDT Temperature 36.8 ??C (98.2 ??F) 07/21/2017 9:02 PM ED T Respiratory Rate 20 07/21/2017 9:02 PM EDT Oxygen Saturation 98% 07/21/2017 9:02 PM EDT Inhaled Oxygen Concentration - - Weight 104.3 kg (230 lb) 07/21/2017 5:19 PM EDT Height 185.4 cm (6' 1 ) 07/21/2017 5:19 PM EDT Body Mass Index 30.34 07/21/2017 5:19 PM EDT Plan of Treatment Health Maintenance Due Date Last Done Comments Adult Td,Tdap Booster 1955 LIPID PANEL 1955 DEPRESSION SCREENING 1967 HEPATITIS B SCREENING 1973 HEPATITIS C SCREENING 1973 SMOKING STATUS SCREENING (On ce After 26 Yrs) 1981 COLOGUARD 2000 COLONOSCOPY 2000 COLORECTAL CANCER SCREENING 2000 FIT TEST 2000 FOBT 2000 SIGMOIDOSCOPY 2000 VIRTUAL COLONOSCOPY 2000 PNEUMOCOCCAL VACCINES (50+ years) (1 of 1 - PCV) 2005 CREATININE LEVEL 07/21/2018 07/21/2017 INFLUENZA VACCINE (#1) 2024 0, 08/13/2019 COVID-19 VACCINE (3 - 2023-2 5 season) 2024 12/13/2020, 11/22/2020 RSV VACCINE (1 - 1-dose 75+ series) 2030 ZOSTER VACCINES Completed 06/09/2020, 09/11/2019 HEPATITIS A VACCINES Aged Out No long er eligible based on patient's age to complete this topic HEPATITIS B VACCINES Aged Out No long er eligible based on patient's age to complete this topic HIB VACCINES Aged Out No longer eligi ble based on patient's age to complete this topic MENINGOCOCCAL VACCINES (ACWY) Aged Out No longer eligible based on patient's age to complete this topic Medical Devices Not on file Procedures Procedure Name Priority Date/Time Associated Diagnosis Comments BASIC METABOLIC PANEL STAT 07/21/2017 7:47 PM EDT from Last 3 Months or Most Recently Relevant to Health Maintenance Results * (ABNORMAL) Basic metabolic panel (07/21/2017 7:47 PM EDT) SODIUM 139 133 - 146 mmol/L [facility] CHLORIDE 101 96 - 108 mmol/L [facility] POTASSIUM 4.0 3.3 - 5.1 mmol/L [facility] CO2 26 21 - 35 mmol/L [facility] BUN 22(H) 6 - 19 mg/dL [facility] CREATININE 0.80 0.5 - 1.5 mg/dL [facility] GLUCOSE 85 70 - 99 mg/dL [facility] CALCIUM 9.0 8.4 - 10.3 mg/dL [facility] EGFR >60 >60 mL/min/1.7 3m2 [facility] Comment:Abnormal if <60. If patient is -[place], multiply the result by 1.21. ANION GAP 16 10 - 20 mmol/L [facility] 07/21/2017 7:47 PM EDT 07/21/2017 7:56 PM EDT Matti Ferguson PA-C LAB BLOOD ORDERABLES Performing Organization Address City/State/[facility] Co de Phone Number [facility] [address] [place] [address] from Last 3 Months or Most Recently Relevant to Health Maintenance Care Teams Jewelry Sorter Relationship Specialty Start Date End Date Eliane Morales MD PCP - General 07/21/17 Additional Source Comments The information contained in this document represents components of the legal health record. It is not the complete legal health record.[facility]
--- OUTSIDE RECORDS SUMMARY | 2024-11-18 13:10 | XMS_ITS | Encounter Summary ---
Author Organization [facility] Address [address] [place] [address] Care Team Providers Care Resident Care Coordinator Name Role Phone Adi Chen MD Primary Care Provider Unavail able [facility], Pcp Primary Care Provider Unavailabl e Encounter Details Date Type Department Care Team Description 08/23/2021 Branch Director Report Medical Records [address] [place] [id number], [address] [place] [address] Social History Tobacco Use Types Packs/Day Years [...] have Coronavirus / COVID-19? No / Unsure 08/12/2021 1:02 PM EST documented as of this encounter Plan of Treatment Not on file documented as of this encounter Visit Diagnoses Not on filedocumented in this encounter Care Teams Resident Care Coordinator Relationship Specialty Start Date End Date Adi Chen MD PCP - General Internal Medicine 07/31/19 03/08/22 [place], Pcp PCP - General Internal Medicine 03/09/22 documented as of this encounter
--- OUTSIDE RECORDS SUMMARY | 2024-11-18 13:10 | XMS_ITS | Encounter Summary ---
Author Organization [facility] Address [address] [place] [address] Care Team Providers Care Cargo And Ramp Services Manager Name Role Phone Adi Chen MD Primary Care Provider Unavail able [facility], Pcp Primary Care Provider Unavailabl e Encounter Details Date Type Department Care Team Description 06/01/2021 Order Desk Clerk Report Medical Records [address] [place] [id number], [address] [place] [address] Social History Tobacco Use Types Packs/Day Years [...] on filedocumented in this encounter Care Teams Cargo And Ramp Services Manager Relationship Specialty Start Date End Date Adi Chen MD PCP - General Internal Medicine 07/31/19 03/08/22 [place], Pcp PCP - General Internal Medicine 03/09/22 documented as of this encounter
--- OUTSIDE RECORDS SUMMARY | 2024-11-18 13:10 | XMS_ITS | Encounter Summary ---
Author Organization [facility] Address [address] [place] [address] Care Team Providers Care Loader Operator/Ground Leader Name Role Phone Adi Chen MD Primary Care Provider Unavail able [facility], Pcp Primary Care Provider Unavailabl e Encounter Details Date Type Department Care Team Description 12/14/2021 Director Public Service Report Medical Records [address] [place] [address] Abstract, Provider Social History Tobacco Use Types [...] on filedocumented in this encounter Care Teams Loader Operator/Ground Leader Relationship Specialty Start Date End Date Adi Chen MD PCP - General Internal Medicine 07/31/19 03/08/22 [facility], Pcp PCP - General Internal Medicine 03/09/22 documented as of this encounter
== END 2024-11-18 10:54 | disposition home or self-care (01) ==
LOC: HO.RESP 10:53
PROVIDERS: PCP Internal Medicine; Visit Provider Hospitalist
DX: R06.2 Wheezing (principal)
CPT/HCPCS: 94010; 94640; 94727; 94729

== ENCOUNTER → 2024-11-18 10:56 | Outpatient (BNV) | payer MEDICARE, SELFPAY | PROVIDERS: PCP Internal Medicine; Visit Provider Internal Medicine Pulmonary Disease | DX: R06.2 Wheezing (principal) | CPT/HCPCS: 94060; 94727; 94729 ==

== ENCOUNTER 2024-11-28 10:53 | Outpatient (AMB) | payer MEDICARE, SELFPAY ==
--- NOTE | 2024-11-28 11:13 | A.OFFVIS_ITS ---
Vital Signs 11/28/24 11:14 Height 6 ft 1 in Weight 229 lb 4.492 oz BMI 30.2 BP 132/74 Blood Pressure Location Rt brachial Position Sitting Pulse 73 Pulse Source Pulse Oximeter Pulse Oximetry (%) 97 Oxygen Delivery Method Room Air Intake Visit Reasons: Sleep apnea Allergies No Known Allergies Allergy (Verified 11/28/24 11:16) HPI Comments Details: The patient is a 69-year-old gentleman with known history of aortic stenosis CAD status post CABG and also significant sleep apnea. Back around 20 years ago the patient did have significant snoring in his at that time did recommend that he get that evaluated with his significant snoring that was affecting her quality of life. He at that time had significant daytime drowsiness with an elevated Vienna score of 11/24. The patient did have a sleep study back in 2006 which demonstrated sleep apnea severe and subsequently had a titration study demonstrating the CPAP 7 cm worse effective for him. Therefore, he did start CPAP at that time. He has machine for long time. CPAP therapy has been affecting beneficial. Now his machine is no longer working effectively. The pressures are not working as robust as they were before. He does not feel as rested. In addition to that now the machine saying that the the angina is about to malfunction. He needs to get a CPAP through his current [employer] company, [employer]. Will go ahead and request a replacement machine for him, AirSense 11. Once he is situated with the machine he will come back and will further adjust the pressures accordingly. From a respiratory status the patient is doing well. He is currently being evaluated for the severe aortic stenosis. His contemplating surgery at this time. 08/25/2024 the patient is here for a pulmonary follow-up visit. Overall he is doing well. 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 Now his heart is working fine and he is not using the pacemaker and he is using it standby for now. He was wondering about removing it but at this point the recommendation is to keep it in place. In the meantime he has been using the CPAP. CPAP therapy has been affecting beneficial. His AHI still slightly elevated at 8 over 24. But he is using the machine for more than 4 hours a night. He wishes he felt more rested in the morning. He may have a component of persistent daytime drowsiness. At this point is not worth putting him on any medications. His AHI is on 12.5. I will slightly adjust the machine to increase the minimum pressure from 6-7 to be closer to his therapeutic range. But it seems to be working just fine with current mask. Therefore will continue that. He does complaint of some dyspnea on exertion. He also complains of some chest tightness. He does have some wheezing on exam. Will start him on some inhalers and I do believe that if pulmonary function study will be helpful in the near future. In part the use of the metoprolol may be affecting his bronchospasms. 11/28/2024 the patient is here for a pulmonary follow-up visit. Overall the patient has been doing better. He never got the Symbicort never was covered we did send something else but for some reason was not the pharmacy. In the meantime he has been doing good. He has a rescue inhaler and he has she has not even use that. And is even . He did undergo pulmonary function studies which we personally reviewed. No evidence of any definitive obstructive nor restrictive ventilatory defects. He does have a little small airways disease which could be some asthma and seems to be stable at this time. As far as his CPAP the therapy has been affecting beneficial. He does use it 100% time more than 4 hours a night. In the apnea score AHI is 1.6. I did further increase the lower pressure of 7-8 to now down the therapeutic window. Otherwise doing good will follow-up in a year's time. I did give him an order for an x-ray that he should have done prior to the next visit but if he is having any issues he can always do it earlier. If he has any issues he can always call. [facility] Medical History (Updated 11/30/24 @ 21:16 by Clint Guo MD) Asthma Wheezing CAD (coronary artery disease) Aortic stenosis KATJA (obstructive sleep apnea) Social History Patient Tobacco Use Status: Never used Tobacco Review of Systems Const Denies fatigue and Denies snoring Eyes Reports no additional complaints ENT Reports nasal congestion Card Reports as per HPI and Reports dyspnea on exertion Resp Reports dyspnea on exertion, Denies snoring and Reports wheezing GI Reports no additional complaints Musc Reports no additional complaints Skin/Breast Reports system reviewed and no additional complaints, except as documented Neuro Reports no additional complaints Endo Denies fatigue Alessio/Lymph Denies lymphadenopathy Aller/Immun Reports wheezing Physical Exam Vital Signs: Last Vital Signs Pulse 73 11/28/24 11:14 BP 132/74 11/28/24 11:14 Pulse Ox 97 11/28/24 11:14 Oxygen Delivery Method Room Air 11/28/24 11:14 BMI result Body Mass Index 30.2 Const General: comfortable HEENT Head: Yes atraumatic Neck Neck: Yes supple Chest Chest palpation & inspection: normal inspection of the chest Resp Effort & Inspection: normal respiratory effort Auscultation: no wheezes and diminished lung sounds Cardio Heart sounds: S1 normal heart sound present and S2 normal heart sound present GI Palpation (GI): Soft to palpation Skin General skin exam: no rashes or lesions noted Extrem General: Yes no clubbing, cyanosis or edema Assessment & Plan Assessment & Plan (1) KATJA (obstructive sleep apnea): Code(s): G47.33 - Obstructive sleep apnea (adult) (pediatric) Category: Medical (2) Aortic stenosis: Code(s): I35.0 - Nonrheumatic aortic (valve) stenosis Category: Medical Qualifiers: Cardiac valve disease etiology: etiology unspecified Qualified Code(s): I35.0 - Nonrheumatic aortic (valve) stenosis (3) CAD (coronary artery disease): Code(s): I25.10 - Atherosclerotic heart disease of [place] coronary artery without angina pectoris Category: Medical Qualifiers: Associated angina: unspecified whether angina present Coronary Disease- Associated Artery/Lesion type: bypass graft, autologous artery Qualified Code(s): I25.810 - Atherosclerosis of coronary artery bypass graft(s) without angina pectoris (4) Asthma: Code(s): J45.909 - Unspecified asthma, uncomplicated Category: Medical Qualifiers: Asthma severity: mild Asthma persistence: intermittent Asthma complication type: uncomplicated Qualified Code(s): J45.20 - Mild intermittent asthma, uncomplicated Plan continue APAP, p10, adjusted 8-16 SAMANTA as needed CXR F/U 12 months Orders: Orders XR chest 2V 11/28/24 R06.2 - Wheezing Medications: New albuterol sulfate 90 mcg/actuation 2 inhalations inhalation Q6H PRN 18 grams 12RF shortness of breath or wheezing 30 days J44.9 - Chronic obstructive pulmonary disease, unspecified Coding Level of Care Code Est Pt Level 4 (68509) Diagnoses KATJA (obstructive sleep apnea) G47.33 Aortic valve stenosis, etiology of cardiac valve disease unspecified I35.0 Cardiac valve disease etiology: etiology unspecified Coronary artery disease involving autologous artery coronary bypass graft, unspecified whether angina present I25.810 Associated angina: unspecified whether angina present Coronary Disease-Associated Artery/Lesion type: bypass graft, autologous artery Mild intermittent asthma without complication J45.20 Asthma severity: mild Asthma persistence: intermittent Asthma complication type: uncomplicated Time Spent (min) 16
[2024-11-28 11:14] VITALS: BP 132/74; PULSE 73; O2SAT 97; BMI 30.2
--- OUTSIDE RECORDS SUMMARY | 2024-11-28 12:25 | XMS_ITS | Encounter Summary ---
Author Organization [facility] Address [address] [place] [address] Care Team Providers Care Cell Installer Name Role Phone Adi Chen MD Primary Care Provider [facility], Pcp Primary Care Provider Unavailabl e Reason for Referral * Non PROMISE (Urgent) - Closed Specialty Diagnoses / Procedures Referred By Contac t Referred To Contact ORTHOPEDICS / Podiatry Procedures REFERRAL TO ORTHOPEDICS (IN NETWORK) Max Fitch PA-C [address] [place] [phone] Vito Bob DPM [address] [address] Referral ID Status Reason Start Date Expiration Date Visits Re quested Visits Authorized [id number] Closed 03/23/2021 03/23/2022 1 1 Encounter Details Date Type Department Care Team Description 03/23/2021 Orders Only Orthopedics-[address] [address] Max Fitch PA-C [address] [place] [address] [id number] Social History Tobacco Use Types Packs/Day Years [...] on filedocumented in this encounter Care Teams Cell Installer Relationship Specialty Start Date End Date Adi Chen MD PCP - General Internal Medicine 07/31/19 03/08/22 [facility], Pcp PCP - General Internal Medicine 03/09/22 documented as of this encounter
--- OUTSIDE RECORDS SUMMARY | 2024-11-28 12:25 | XMS_ITS | Encounter Summary ---
Author Organization [facility] Address [address] [place] [address] Care Team Providers Care Global Sourcing Manager Name Role Phone Adi Chen MD Primary Care Provider Unavail able [facility], Pcp Primary Care Provider Unavailabl e Encounter Details Date Type Department Care Team Description 11/11/2021 Egg Smeller Report Medical Records [address] [place] [address] Ileana Smalls PA-C Social History Tobacco Use [...] on filedocumented in this encounter Care Teams Global Sourcing Manager Relationship Specialty Start Date End Date Adi Chen MD PCP - General Internal Medicine 07/31/19 03/08/22 [place], Pcp PCP - General Internal Medicine 03/09/22 documented as of this encounter
--- OUTSIDE RECORDS SUMMARY | 2024-11-28 12:25 | XMS_ITS | Encounter Summary ---
Author Organization [facility] Address [address] [place] [address] Care Team Providers Care Brigadier Name Role Phone Adi Chen MD Primary Care Provider Unavail able [facility], Pcp Primary Care Provider Unavailabl e Encounter Details Date Type Department Care Team Description 03/17/2021 Industrial Painter Report Medical Records [address] [place] [address] Pradeep Hernandez Social History Tobacco Use Types [...] have Coronavirus / COVID-19? No / Unsure 03/11/2021 9:50 AM EDT documented as of this encounter Plan of Treatment Not on file documented as of this encounter Visit Diagnoses Not on filedocumented in this encounter Care Teams Brigadier Relationship Specialty Start Date End Date Adi Chen MD PCP - General Internal Medicine 07/31/19 03/08/22 [facility], Pcp PCP - General Internal Medicine 03/09/22 documented as of this encounter
--- OUTSIDE RECORDS SUMMARY | 2024-11-28 12:25 | XMS_ITS | Encounter Summary ---
Author Organization [facility] Address [address] [place] [address] Care Team Providers Care Lithograph Printer Name Role Phone Adi Chen MD Primary Care Provider Unavail able [facility], Pcp Primary Care Provider Unavailabl e Encounter Details Date Type Department Care Team Description 08/23/2021 Infrastructure Director Report Medical Records [address] [place] [address] [id number], [address] [place] [address] Social History Tobacco Use Types Packs/Day Years [...] on filedocumented in this encounter Care Teams Lithograph Printer Relationship Specialty Start Date End Date Adi Chen MD PCP - General Internal Medicine 07/31/19 03/08/22 [place], Pcp PCP - General Internal Medicine 03/09/22 documented as of this encounter
--- OUTSIDE RECORDS SUMMARY | 2024-11-28 12:25 | XMS_ITS | Encounter Summary ---
Author Organization [facility] Address [address] [place] [address] Care Team Providers Care Emergency Room Registered Nurse Name Role Phone Adi Chen MD Primary Care Provider Unavail able [facility], Pcp Primary Care Provider Unavailabl e Encounter Details Date Type Department Care Team Description 04/08/2021 Material Attendant Report Medical Records [address] [place] [address] Pradeep Hernandez Social History Tobacco Use Types [...] on filedocumented in this encounter Care Teams Emergency Room Registered Nurse Relationship Specialty Start Date End Date Adi Chen MD PCP - General Internal Medicine 07/31/19 03/08/22 [facility], Pcp PCP - General Internal Medicine 03/09/22 documented as of this encounter
--- OUTSIDE RECORDS SUMMARY | 2024-11-28 12:25 | XMS_ITS | Encounter Summary ---
Author Organization [facility] Address [address] [place] [address] Care Team Providers Care Shopper Marketing Manager Name Role Phone Eliane Morales MD Primary Care Provider Aid Dawson MD Primary Care Provider [facility], Pcp Primary Care Provider Unavailabl e Encounter Details Date Type Department Care Team Description 02/13/2018 Telephone Pulmonology - [address] [place] [address] Arturo Butler Social History Tobacco [...] on filedocumented in this encounter Care Teams Shopper Marketing Manager Relationship Specialty Start Date End Date Elaine Morales MD PCP - General Internal Medicine 08/07/17 07/30/19 Adi Chen MD PCP - General Internal Medicine 07/31/19 03/08/22 [facility], Pcp PCP - General Internal Medicine 03/09/22 documented as of this encounter
--- OUTSIDE RECORDS SUMMARY | 2024-11-28 12:25 | XMS_ITS | Encounter Summary ---
Author Organization [facility] Address [address] [place] [address] Care Team Providers Care Screener Operator Name Role Phone Eliane Morales MD Primary Care Provider Adi Dawson MD Primary Care Provider [facility], Pcp [facility] Encounter Details Date Type Department Care Team Description 05/23/2019 Old Medical Records Medical Records [address] [place] [id number] Abstract, Provider Social History Tobacco Use Types [...] on filedocumented in this encounter Care Teams Screener Operator Relationship Specialty Start Date End Date Eliane Morales MD PCP - General Internal Medicine 08/07/17 07/30/19 Adi Chen MD PCP - General Internal Medicine 07/31/19 03/08/22 [facility], Pcp PCP - General Internal Medicine 03/09/22 documented as of this encounter
--- OUTSIDE RECORDS SUMMARY | 2024-11-28 12:25 | XMS_ITS | Encounter Summary ---
Author Organization [facility] Address [address] [place] [address] Care Team Providers Care Internal Affairs Investigator Name Role Phone Adi Chen MD Primary Care Provider Unavail able [facility], Pcp Primary Care Provider Unavailabl e Encounter Details Date Type Department Care Team Description 04/26/2021 Hospital Medicine Director Report Medical Records [address] [place] [address] Social History Tobacco Use Types Packs/Day Years [...] on filedocumented in this encounter Care Teams Internal Affairs Investigator Relationship Specialty Start Date End Date Adi Chen MD PCP - General Internal Medicine 07/31/19 03/08/22 [facility], Pcp PCP - General Internal Medicine 03/09/22 documented as of this encounter
--- OUTSIDE RECORDS SUMMARY | 2024-11-28 12:25 | XMS_ITS | Encounter Summary ---
Author Organization [facility] Address [address] [place] [address] Care Team Providers Care Decorator Hand Name Role Phone Adi Chen MD Primary Care Provider Unavail able [facility], Pcp Primary Care Provider Unavailabl e Encounter Details Date Type Department Care Team Description 05/19/2021 Business Doc Medical Records [address] [place] [id number] Abstract, Provider Social History Tobacco Use Types [...] have Coronavirus / COVID-19? No / Unsure 05/19/2021 11:32 AM EDT documented as of this encounter Plan of Treatment Not on file documented as of this encounter Visit Diagnoses Not on filedocumented in this encounter Care Teams Decorator Hand Relationship Specialty Start Date End Date Adi Chen MD PCP - General Internal Medicine 07/31/19 03/08/22 [facility], Pcp PCP - General Internal Medicine 03/09/22 documented as of this encounter
--- OUTSIDE RECORDS SUMMARY | 2024-11-28 12:25 | XMS_ITS | Encounter Summary ---
Author Organization [facility] Address [address] [place] [address] Care Team Providers Care Commercial Drone Software Developer Name Role Phone Eliane Morales MD Primary Care Provider Adi Dawson MD Primary Care Provider [facility] Pcp Primary Care Provider Unavailabl e Encounter Details Date Type Department Care Team Description 09/10/2018 Orders Only LAB /[address] [id number] Eliane Morales MD Diabetes mellitus without complication [...] AM EST Eliane Morales MD LAB [facility] documented in this encounter Visit Diagnoses Diagnosis Diabetes mellitus without complication (HCC)- Primary Type II or unspecified type diabetes mellitus without mention of complication, not stated as uncontrolled documented in this encounter Care Teams Commercial Drone Software Developer Relationship Specialty Start Date End Date Eliane Morales MD PCP - General Internal Medicine 08/07/17 07/30/19 Adi Chen MD PCP - General Internal Medicine 07/31/19 03/08/22 [facility], Pcp PCP - General Internal Medicine 03/09/22 documented as of this encounter
--- OUTSIDE RECORDS SUMMARY | 2024-11-28 12:25 | XMS_ITS | Encounter Summary ---
Author Organization [facility] Address [address] [place] [address] Care Team Providers Care Hospital Cna Name Role Phone Adi Chen MD Primary Care Provider [facility] Pcp Primary Care Provider Unavailabl e Reason for Visit * Reason Onset Date Comments Pre-visit Diabetes Lab Adult Medicine 08/02/202108/12 Encounter Details Date Type Department Care Team Description 08/02/2021 Telephone Medicine/Pediatrics [address] [phone] Adi Chen MD Pre-visit Diabetes Lab Adult Medicine (08/12) Social History Tobacco Use Types Packs/Day Years [...] AM EDT documented as of this encounter Miscellaneous Notes * Telephone Encounter - Subha Diaz - 08/02/2021 10:30 AM EST Sent patient an email advising them to complete diabetic lab work at least three days prior to their upcoming appointment. documented in this encounter Plan of Treatment Not on file documented as of this encounter Results * MICROALBUMIN/CREATININE, URINE (08/10/2021 4:07 PM EST) CREATININE, RANDOM URINE 100 mg/dL 08/10/2021 7:18 PM EST [facility] MICROALBUMIN, RANDOM 8.0 0.0 - 29.0 mg/L 08/10/2021 7:25 PM EST [facility] MICROALB/CRE RATIO RANDOM < 8.0 0.0 - 30.0 mg/G 08/10/2021 7:25 PM EST [facility] 08/10/2021 4:07 PM EST 08/10/2021 4:08 PM EST Narrative [facility] - 08/10/2021 7:25 PM EST Release to patient->Immediate Adi Chen MD LAB [facility] * (ABNORMAL) LIPID PROFILE (08/10/2021 3:58 PM EST) Cholesterol 123 0 - 200 mg/dL 08/10/2021 7:04 PM EST [facility] TRIGLYCERIDES 264(H) 0 - 150 mg/dL 08/10/2021 7:04 PM EST [facility] HDL CHOLESTEROL 30(L) >40 mg/dL 7:04 PM EST [facility] LDL CALCULATED 41 0 - 100 mg/dL 08/10/2021 7:04 PM EST [facility] TC-HDLC RATIO 4.1 0 - 4.4 mg/dL 08/10/2021 7:04 PM EST [facility] 08/10/2021 3:58 PM EST 08/10/2021 3:58 PM EST Narrative [facility] - 08/10/2021 7:04 PM EST Release to patient->Immediate Adi Chen MD LAB [facility] * BASIC METABOLIC PANEL (08/10/2021 3:58 PM EST) GLUCOSE 80 70 - 100 mg/dL 08/10/2021 7:04 PM EST [facility] Comment:Reference range appl icable to fasting specimens only Blood Urea Nitrogen 20 5 - 25 mg/dL 08/10/2021 7:04 PM EST [facility] CREAT 0.86 0.7 - 1.3 mg/dL 08/10/2021 7:04 PM EST [facility] GLOMERULAR FILTRATION RATE > 60 08/10/2021 7:04 PM EST [facility] Comment: If patient is -[place], multiply result by 1.21 Chronic Kidney Disease: < 60 ml/min/1.73 square meters Kidney Failure: < 15 ml/min/1.73 square meters NA 137 135 - 145 mEq/L 08/10/2021 7:04 PM EST [facility] K 4.2 3.5 - 5.5 mmol/L 08/10/2021 7:04 PM EST [facility] CL 103 96 - 110 mmol/L 08/10/2021 7:04 PM EST [facility] CARBON DIOXIDE (CO2) 29 21 - 32 mmol/L 08/10/2021 7:04 PM EST [facility] ANION GAP 5 3 - 11 08/10/2021 7:04 PM EST [facility] CALCIUM 9.5 8.5 - 10.5 mg/dL 08/10/2021 7:04 PM EST [facility] 08/10/2021 3:58 PM EST 08/10/2021 3:58 PM EST Narrative [facility] - 08/10/2021 7:04 PM EST Release to patient->Immediate Adi Chen MD LAB [facility] * (ABNORMAL) HEMOGLOBIN A1C (08/10/2021 3:58 PM EST) GLYCATED HEMOGLOBIN A1C 6.6(H) <6.5 % 08/11/2021 11:21 AM EST [facility] ESTIMATED AVERAGE GLUCOSE 143 mg/dL 08/11/2021 11:21 AM EST [facility] 08/10/2021 3:58 PM EST 08/10/2021 3:58 PM EST Narrative [facility] - 08/11/2021 11:21 AM EST Release to patient->Immediate Adi Chen MD LAB [facility] documented in this encounter Visit Diagnoses Diagnosis 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
--- OUTSIDE RECORDS SUMMARY | 2024-11-28 12:25 | XMS_ITS | Encounter Summary ---
Author Organization [facility] Address [address] [place] [address] Care Team Providers Care Workers Compensation Attorney Name Role Phone Eliane Morales MD Primary Care Provider Adi Dawson MD Primary Care Provider [facility], Pcp [facility] Encounter Details Date Type Department Care Team Description 08/13/2017 Transfer Records Medical Records [address] [place] [address] Abstract, Provider Social History Tobacco Use Types [...] on filedocumented in this encounter Care Teams Workers Compensation Attorney Relationship Specialty Start Date End Date Eliane Morales MD PCP - General Internal Medicine 08/07/17 07/30/19 Adi Chen MD PCP - General Internal Medicine 07/31/19 03/08/22 [facility], Pcp PCP - General Internal Medicine 03/09/22 documented as of this encounter
--- OUTSIDE RECORDS SUMMARY | 2024-11-28 12:25 | XMS_ITS | Encounter Summary ---
Author Organization [facility] Address [address] [place] [address] Care Team Providers Care Supervisor [employer]rain [employer] Name Role Phone Adi Chen MD Primary Care Provider Unavail able [facility], Pcp Primary Care Provider Unavailabl e Encounter Details Date Type Department Care Team Description 05/31/2021 Business Doc Medical Records [address] [place] [address] Abstract, Provider Social History Tobacco Use Types [...] on filedocumented in this encounter Care Teams Supervisor [employer] Relationship Specialty Start Date End Date Adi Chen MD PCP - General Internal Medicine 07/31/19 03/08/22 [facility], Pcp PCP - General Internal Medicine 03/09/22 documented as of this encounter
--- OUTSIDE RECORDS SUMMARY | 2024-11-28 12:25 | XMS_ITS | Encounter Summary ---
Author Organization [facility] Address [address] [place] [address] Care Team Providers Care Stage Settings Painter Name Role Phone Adi Chen MD Primary Care Provider Unavail able [facility], Pcp Primary Care Provider Unavailabl e Encounter Details Date Type Department Care Team Description 07/22/2021 Refill Medicine/Pediatrics - [address] [phone] Meghna Sanchez PA-C [address] [place] [address] Social History Tobacco Use Types Packs/Day Years [...] on filedocumented in this encounter Care Teams Stage Settings Painter Relationship Specialty Start Date End Date Adi Chen MD PCP - General Internal Medicine 07/31/19 03/08/22 [facility], Pcp PCP - General Internal Medicine 03/09/22 documented as of this encounter
--- OUTSIDE RECORDS SUMMARY | 2024-11-28 12:25 | XMS_ITS | Encounter Summary ---
Author Organization [facility] Address [address] [place] [address] Care Team Providers Care Cardiology Clinical Consultant Name Role Phone Eliane Morales MD Primary Care Provider Adi Dawson MD Primary Care Provider [facility], Pcp Primary [facility] Encounter Details Date Type Department Care Team Description 08/10/2017 Release of Information Medical Records [address] [place] [id number] Abstract, Provider Social History Tobacco Use Types [...] on filedocumented in this encounter Care Teams Cardiology Clinical Consultant Relationship Specialty Start Date End Date Eliane Morales MD PCP - General Internal Medicine 08/07/17 07/30/19 Adi Chen MD PCP - General Internal Medicine 07/31/19 03/08/22 [facility], Pcp PCP - General Internal Medicine 03/09/22 documented as of this encounter
--- OUTSIDE RECORDS SUMMARY | 2024-11-28 12:25 | XMS_ITS | Encounter Summary ---
Author Organization [facility] Address [address] [place] [address] Care Team Providers Care Assistant Basketball Coach Name Role Phone Adi Chen MD Primary Care Provider Unavail able [facility], Pcp Primary Care Provider Unavailabl e Encounter Details Date Type Department Care Team Description 07/05/2021 Music Cataloguer Report Medical Records [address] [place] [id number], [address] [place] [address] Social History Tobacco Use Types Packs/Day Years [...] on filedocumented in this encounter Care Teams Assistant Basketball Coach Relationship Specialty Start Date End Date Adi Chen MD PCP - General Internal Medicine 07/31/19 03/08/22 [facility], Pcp PCP - General Internal Medicine 03/09/22 documented as of this encounter
--- OUTSIDE RECORDS SUMMARY | 2024-11-28 12:25 | XMS_ITS | Clinical Summary ---
Author Organization [facility] Address [address] [facility] [address] [place] [address] Phone Care Team Providers Care Rotogravure Press Operator Name Role Phone Eliane Morales MD Primary Care Provider [phone] Allergies No known active allergies Medications Medication [...] EDT) SODIUM 139 133 - 146 mmol/L [facility] CHLORIDE 101 96 - 108 mmol/L [facility] POTASSIUM 4.0 3.3 - 5.1 mmol/L [facility] CO2 26 21 - 35 mmol/L [facility] BUN 22(H) 6 - 19 mg/dL [facility] CREATININE 0.80 0.5 - 1.5 mg/dL [facility] GLUCOSE 85 70 - 99 mg/dL [facility] CALCIUM 9.0 8.4 - 10.3 mg/dL [facility] EGFR >60 >60 mL/min/1.7 3m2 [facility] Comment:Abnormal if <60. If patient is -[place], multiply the result by 1.21. ANION GAP 16 10 - 20 mmol/L [facility] 07/21/2017 7:47 PM EDT 07/21/2017 7:56 PM EDT Matti Ferguson PA-C LAB BLOOD ORDERABLES [facility] [address] [place] [address] from Last 3 Months or Most Recently Relevant to Health Maintenance Care Teams Rotogravure Press Operator Relationship Specialty Start Date End Date Eliane Morales MD PCP - General 07/21/17 Additional Source Comments The information contained in this document represents components of the legal health record. It is not the complete legal health record.[facility]
--- OUTSIDE RECORDS SUMMARY | 2024-11-28 12:25 | XMS_ITS | Encounter Summary ---
Author Organization [facility] Address [address] [place] [address] Care Team Providers Care Chemicals Distiller Name Role Phone Eliane Morales MD Primary Care Provider Adi Dawson MD Primary Care Provider [facility] Pcp Primary Care Provider Unavailabl e Encounter Details Date Type Department Care Team Description 02/20/2019 Orders Only LAB /[address] [id number] Eliane Morales MD Diabetes mellitus without complication [...] EDT [facility] Comment: If patient is -[place]incent[place], multiply result by 1.21 Chronic Kidney Disease: [...] uncontrolled documented in this encounter Care Teams Chemicals Distiller Relationship Specialty Start Date End Date Eliane Morales MD PCP - General Internal Medicine 08/07/17 07/30/19 Adi Chen MD PCP - General Internal Medicine 07/31/19 03/08/22 [facility] Pcp PCP - General Internal Medicine 03/09/22 documented as of this encounter
== END 2024-11-28 11:45 | disposition home or self-care (01) ==
PROVIDERS: PCP Internal Medicine; Visit Provider Hospitalist
DX: G47.33 Obstructive sleep apnea (adult) (pediatric) (principal); I35.0 Nonrheumatic aortic (valve) stenosis; I25.810 Atherosclerosis of coronary artery bypass graft(s) without angina pectoris; J45.20 Mild intermittent asthma, uncomplicated
CPT/HCPCS: 99214

== ENCOUNTER → 2024-11-28 10:53 | Outpatient (BNVA) | payer MEDICARE, SELFPAY | PROVIDERS: PCP Internal Medicine; Visit Provider Hospitalist | DX: G47.33 Obstructive sleep apnea (adult) (pediatric) (principal); J45.20 Mild intermittent asthma, uncomplicated; I35.0 Nonrheumatic aortic (valve) stenosis; I25.810 Atherosclerosis of coronary artery bypass graft(s) without angina pectoris; I10 Essential (primary) hypertension | CPT/HCPCS: 99212 ==